=== PATIENT | female | born 1985 | race Caucasian/White ===

== ENCOUNTER 2018-01-04 11:56 | Inpatient (IN) | payer MEDICAID ==
[2018-01-04] MEDS ORDERED: CARBOPROST 250 MCG INJ IM ×2 (12:30→18:30)
[2018-01-04] MEDS ORDERED: MISOPROSTOL 200 MCG TAB PR ×2 (12:30→18:30)
[2018-01-04] MEDS ORDERED: METHYLERGONOVINE 0.2 MG INJ IM ×2 (12:30→18:30)
[2018-01-04] MEDS ORDERED: OXYTOCIN 30 UNITS/LR 500 ML IV ×3 (12:30→15:00)
[2018-01-04 12:56] LABS: ADD MAN DIFF? NO
[2018-01-04 12:58] LABS: BASOPHIL # 0.1 10^3/ul (0.0-0.1); BASOPHILS % 0.5 % (0.0-2.0); EOSINOPHILS # 0.1 10^3/ul (0.0-0.5); EOSINOPHILS % 0.5 % (0.0-7.0); HEMOGLOBIN 13.2 g/dl (12.0-16.0); LYMPHOCYTES # 1.9 10^3/ul (0.8-2.9); LYMPHOCYTES % 19.8 % (15.0-51.0); MEAN CORPUSCULAR HEMOGLOBIN 28.2 pg (29.0-33.0); MEAN CORPUSCULAR HGB CONC 33.8 g/dl (32.0-37.0); MEAN CORPUSCULAR VOLUME 83.3 fl (82.0-101.0); MEAN PLATELET VOLUME 10.8 fl (7.4-10.4); MONOCYTES % 10.4 % (0.0-11.0); NEUTROPHIL # 6.4 10^3/ul (1.6-7.5); NEUTROPHILS % 68.1 % (39.0-77.0); PLATELET COUNT 248 10^3/UL (140-415); RED BLOOD COUNT 4.68 10^6/ul (4.20-5.40); RED CELL DISTRIBUTION WIDTH 13.6 % (11.5-14.5)
[2018-01-04 12:58] LABS: WHITE BLOOD COUNT 9.4 10^3/ul (4.8-10.8)
[2018-01-04] MEDS: LACTATED RINGER'S 1,000 ML IV ×2 (13:06→22:39)
[2018-01-04 13:24] LABS: INR 0.87; PARTIAL THROMBOPLASTIN TIME 28.1 Sec (25.0-35.0); PROTIME 11.9 Sec (11.9-14.9); PT RATIO 0.9
[2018-01-04] MEDS: CITRIC ACID/SODIUM CITRATE 15 ML CUP PO (13:29)
[2018-01-04 13:52] LABS: HEPATITIS B SURFACE ANTIGEN NEGATIVE (NEGATIVE)
[2018-01-04] MEDS ORDERED: morphine SULFATE/PF (10 MG/10 ML) INJ (14:00)
[2018-01-04] MEDS ORDERED: METOCLOPRAMIDE 10 MG INJ (14:01)
[2018-01-04] MEDS ORDERED: KETOROLAC 30 MG INJ (14:01)
[2018-01-04] MEDS ORDERED: ONDANSETRON 4 MG INJ (14:01)
[2018-01-04] MEDS ORDERED: PHENYLephrine (100 MCG/ML) 5ML SYG (14:19)
[2018-01-04] MEDS: OXYTOCIN 30 UNITS/LR 500 ML IV ×2 (15:16→18:27)
[2018-01-04] MEDS: CEFAZOLIN 2 GM/50 ML (PMX) 50 ML IV ×2 (15:30→18:48)
[2018-01-04] MEDS ORDERED: NALOXONE (0.4 MG/ML) INJ IV ×2 (17:00)
[2018-01-04] MEDS ORDERED: morphine (1 MG/ML) 10ML SYRINGE IV ×3 (17:00)
[2018-01-04] MEDS ORDERED: ONDANSETRON 4 MG INJ IV ×3 (17:00)
[2018-01-04] MEDS ORDERED: morphine 2 MG INJ IV ×4 (17:00)
[2018-01-04] MEDS ORDERED: DIPHENHYDRAMINE 50 MG INJ IV ×2 (17:00)
[2018-01-04] MEDS: morphine 2 MG INJ IV (17:07)
[2018-01-04] MEDS ORDERED: HYDROCODONE/APAP (5/325) TAB PO (18:30)
[2018-01-04] MEDS: LANOLIN 7 GM TUBE TOP (18:48)
[2018-01-04] MEDS: KETOROLAC 30 MG INJ IV (20:35)
[2018-01-04] MEDS: SENNA/DOCUSATE NA (8.6MG/50MG) TAB PO (21:00)
[2018-01-04 21:53] LABS: RAPID PLASMA REAGIN NONREACTIVE (NR)
[2018-01-04] MEDS ORDERED: IBUPROFEN 800 MG TAB PO (22:00)
[2018-01-05] MEDS: CEFAZOLIN 2 GM/50 ML (PMX) 50 ML IV ×2 (02:21→11:28)
[2018-01-05] MEDS: KETOROLAC 30 MG INJ IV ×2 (03:13→09:18)
[2018-01-05] MEDS: LACTATED RINGER'S 1,000 ML IV ×3 (06:35→18:10)
[2018-01-05 08:58] LABS: ADD MAN DIFF? NO
[2018-01-05] MEDS: SENNA/DOCUSATE NA (8.6MG/50MG) TAB PO ×2 (09:09→22:00)
[2018-01-05] MEDS: BISACODYL 10 MG SUPP PR (09:09)
[2018-01-05 09:15] LABS: WHITE BLOOD COUNT 10.5 10^3/ul (4.8-10.8)
[2018-01-05 09:15] LABS: BASOPHILS % 0.3 % (0.0-2.0); EOSINOPHILS # 0.1 10^3/ul (0.0-0.5); EOSINOPHILS % 0.8 % (0.0-7.0); HEMATOCRIT 33.4 % (37.0-47.0); HEMOGLOBIN 11.1 g/dl (12.0-16.0); LYMPHOCYTES # 1.6 10^3/ul (0.8-2.9); LYMPHOCYTES % 15.2 % (15.0-51.0); MEAN CORPUSCULAR HEMOGLOBIN 27.9 pg (29.0-33.0); MEAN CORPUSCULAR HGB CONC 33.2 g/dl (32.0-37.0); MEAN CORPUSCULAR VOLUME 83.9 fl (82.0-101.0); NEUTROPHIL # 7.8 10^3/ul (1.6-7.5); NEUTROPHILS % 74.4 % (39.0-77.0); PLATELET COUNT 213 10^3/UL (140-415); RED BLOOD COUNT 3.98 10^6/ul (4.20-5.40); RED CELL DISTRIBUTION WIDTH 13.9 % (11.5-14.5)
[2018-01-05] MEDS: CLINDAMYCIN 300 MG CAP PO ×2 (13:44→17:29)
[2018-01-05] MEDS: morphine 2 MG INJ IV (14:09)
[2018-01-05] MEDS: OXYCODONE/ACETAMINOPHEN (5/325) TAB PO ×2 (15:59→19:54)
[2018-01-05] MEDS: IBUPROFEN 800 MG TAB PO (22:00)
[2018-01-06] MEDS: CLINDAMYCIN 300 MG CAP PO ×5 (01:11→23:39)
[2018-01-06] MEDS: LACTATED RINGER'S 1,000 ML IV ×3 (02:10→18:10)
[2018-01-06] MEDS: IBUPROFEN 800 MG TAB PO ×3 (05:37→22:01)
[2018-01-06] MEDS: NA PHOSPHATE/BIPHOS 133 ML ENEMA PR (09:08)
[2018-01-06] MEDS: SENNA/DOCUSATE NA (8.6MG/50MG) TAB PO ×2 (09:08→22:01)
[2018-01-07] MEDS: CLINDAMYCIN 300 MG CAP PO ×2 (05:37→11:51)
[2018-01-07] MEDS: IBUPROFEN 800 MG TAB PO ×2 (05:37→14:00)
[2018-01-07] MEDS: SENNA/DOCUSATE NA (8.6MG/50MG) TAB PO (08:19)
[2018-01-07] MEDS: DIPHTH/TET/ACEL PERTUSS (ADULT) 0.5 ML VIAL IM* (09:00)
[2018-01-07] MEDS: MEASLES,MUMPS,RUBELLA VACCINE INJ SC* (09:00)
== END 2018-01-07 15:00 | disposition home or self-care (01) | DRG 766 ==
LOC: L-D 11:56 → PP1 17:47
PROVIDERS: Obstetrics & Gynecology
PROC: 10D00Z1 Extraction of Products of Conception, Low, Open Approach (ICD-10-PCS; principal; 2018-01-04 12:30)
PROC: 3E033VJ Introduction of Other Hormone into Peripheral Vein, Percutaneous Approach (ICD-10-PCS; 2018-01-04 12:30)
DX: O34.211 Maternal care for low transverse scar from previous cesarean delivery (principal); Z37.0 Single live birth; Z3A.39 39 weeks gestation of pregnancy
CPT/HCPCS: 85025; 85610; 85730; 86592; 86850; 86900; 86901; 87340; 94760; 99464